=== PATIENT | female | born 2000 | race Caucasian/White ===

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

== ENCOUNTER 2021-08-13 15:30 | Outpatient (CLI) | payer OTHER, SELFPAY | END 2021-08-13 23:59 | disposition home or self-care (01) | LOC: WPOUT 15:33 → LABSPEC 15:34 | PROVIDERS: Visit Provider Otolaryngology | DX: J02.9 Acute pharyngitis, unspecified (principal) | CPT/HCPCS: 87070; 87077 ==

== ENCOUNTER 2023-02-03 17:37 | Emergency (ER) | payer OTHER, MEDICAID, SELFPAY ==
[2023-02-03 17:38] VITALS: BP 127/74; PULSE 78; RESP 14; TEMP 35.7; O2SAT 97; BMI 30.2
--- NOTE | 2023-02-03 18:36 | ED.RN ---
Patient states she fell Friday night and hit her head, denies LOC. States headache got worse over the last day. Took one 200mg ibuprofen only, states her parents are strict on what she can take.
[2023-02-03 20:00] VITALS: RESP 18
--- NOTE | 2023-02-03 20:22 | CT_ITS ---
STUDY: CT BRAIN WITHOUT CONTRAST REASON FOR EXAM: Female, 23 years old. trauma RADIATION DOSAGE (If Supplied By Facility): CTDIvol = ( 44.99 ) mGy, DLP = ( 779.24 ) mGycm TECHNIQUE: Transaxial CT imaging of the brain was performed without administration of intravenous contrast material. Individualized dose optimization techniques were used for this CT. COMPARISON: 06/18/2013 FINDINGS: Normal soft tissue structures. Normal calvarium. Normal size ventricles and extra-axial spaces for the patient''s age. Normal white matter tracts of the cerebral hemispheres. Normal basal ganglia and thalami. Normal brainstem. Normal cerebellum. There is no intracranial hemorrhage. There are no findings of an acute ischemic infarction. Normal visualized paranasal sinuses. CT/Brain/Head without Contrast IMPRESSION: Normal unenhanced CT scan of the brain. Electronically Signed: Ronal Mg MD at 21:09 EDT ,
--- NOTE | 2023-02-03 20:23 | EDS_ITS ---
HPI History of Present Illness Chief Complaint: Headache Informant: patient Narrative Narrative: Patient had an injury to the back of her head, and has been having a headache ever since. This occurred somewhere in the 30-40-hour ago range. She states she and some friends were drinking, she was coming down some steps and lost her balance, falling, and as she was going back up the steps she fell again. One of them, she hit the back of her head on the baseboard/railing next to the steps. She is been having pain and photophobia with some occasional diplopia ever since, and feeling a little disoriented. No vomiting. No neck pain. No other injuries or pain. [facility] Medical History Anemia affecting History of depression PTSD (post-traumatic stress disorder) Home Medications vits no.130-ferrous fum 27 mg iron-folic acid 800 mcg tablet ( Vitamin) 1 ea PO DAILY 11/19/18 [History Last Taken 11/18/18] ferrous sulfate 325 mg (65 mg iron) tablet 325 mg PO 1200,1700 ##30 11/21/18 [Rx Last Taken Unknown] Allergy/AdvReac Type Severity Reaction Status Date / Time amoxicillin [Amoxicillin] AdvReac Diarrhea Verified 02/03/23 17:38 Social History Smoking Status: Never smoker ROS ROS ED Constitutional Constitutional ED: Denies chills or fever(s) Eyes Eyes: Reports change in vision and diplopia; Denies blurry vision ENT ENT ED: Denies ear pain or sore throat Cardiovascular Cardiovascular: Denies chest pain or palpitations Respiratory/Chest Respiratory/Chest: Denies cough or dyspnea Gastrointestinal Gastrointestinal: Denies abdominal pain, diarrhea, nausea or vomiting Genitourinary Genitourinary ED: Denies dysuria or urinary frequency Musculoskeletal Musculoskeletal: Denies back pain or myalgias Integumentary Denies abscess or rash Neurologic Neurologic: Reports headache(s); Denies paresthesias or weakness EXAM Physical Exam Const Vital Signs: 02/03/23 17:38 02/03/23 20:00 Temperature 96.3 F L Temperature Source Temporal Pulse Rate 78 Respiratory Rate 14 18 Blood Pressure 127/74 H Blood Pressure Mean 91 Pulse Ox 97 Oxygen Delivery Method Room Air Room Air HEENT Reports normocephalic and moist mucous membranes HEENT Narrative: Mild tenderness at the occiput, a little to the right. No obvious signs of trauma. No crepitance or depression or boggy hematoma. Eyes PERRL, EOMs intact bilaterally and conjunctivae normal Eyes Narrative: photophobia Neck no lymphadenopathy, supple and no meningeal signs Resp normal respiratory effort and clear to auscultation bilaterally GI non-tender and non-distended Palpation: soft Extremity normal to inspection and full ROM Neuro oriented x3 and CN's II-XII intact bilaterally Sensorium / Orientation: awake and alert Speech: speech normal Gait (Neuro): normal gait Motor Exam: strength 5/5 throughout Psych mental status grossly normal Skin Lesions: no lesions Rashes: no rashes MDM MDM MDM Narrative Medical decision making narrative: CT obtained, I reviewed the images and the report which I agree with, negative for than acute. Patient was okay getting a dose of naproxen she declined antinausea medications, given appropriate discharge instructions and follow-up. Radiography Diagnostic Testing: Clinical Impression(s) from Imaging Studies Brain CT 02/03/23 20:22 IMPRESSION: Normal unenhanced CT scan of the brain. Electronically Signed: Ronal Mg MD at 21:09 EDT , Discharge Plan Triage Chief Complaint: Headache ED Provider: Evin Patel Dx/Rx/DC Orders Clinical Impression: Closed head injury without loss of consciousness Instructions: Concussion Dc Prescriptions: No Action vit no.[id number] [ Vitamin] 1 EACH tablet 1 ea PO DAILY ferrous sulfate 325 MG tablet 325 mg PO 1200,1700 Qty: 30 0RF Primary Care Provider: Aliza Gregory NP Referrals: Aliza Gregory NP, [employer] M[employer]INE OPERATOR-[employer] [Primary Care Provider] - (1 week if persistent symptoms) Disposition Disposition: Home, Self Care Discharge Date/Time: 02/03/23 20:41
[2023-02-03] MEDS: Naproxen 250 MG Tablet 500 MG PO (20:26)
== END 2023-02-03 20:41 | disposition home or self-care (01) ==
PROVIDERS: Emergency Provider Emergency Medicine; PCP Nurse Practitioner Primary Care; Visit Provider Emergency Medicine
DX: S09.90XA Unspecified injury of head, initial encounter (principal); W10.9XXA Fall (on) (from) unspecified stairs and steps, initial encounter; H53.2 Diplopia
CPT/HCPCS: 70450; 99282

== ENCOUNTER 2023-07-09 12:45 | Outpatient (CLI) | payer MEDICAID, OTHER, SELFPAY ==
[2023-07-09 12:54] VITALS: BMI 30.9
[2023-07-09 13:06] VITALS: TEMP 36.7
[2023-07-09 13:07] VITALS: BP 119/60; PULSE 90
[2023-07-09 13:12] LABS: Color, Urine Yellow (Yellow); Glucose, Dipstick Normal (Normal); Ketone-Dipstick Negative (Negative); Leukocyte Esterase-Dipstick 500 /ul (Negative); Nitrite-Dipstick Negative (Negative); Occult Blood-Urine 10 /ul (Negative); Protein-Dipstick 15 mg/dl (Negative); Specific Gravity, Urine 1.015 (1.002-1.030); Urine Bilirubin Dipstick Negative (Negative); Urine Clarity Sl. Cloudy (Clear); Urine Urobilinogen Normal (Normal); Urine pH 6.5 (5.0 - 8.0)
[2023-07-09] MEDS: Acetaminophen 500 MG Tablet 1000 MG PO (14:15)
[2023-07-09] MEDS: Lactated Ringers 1,000 ML 999 ML IV (14:16)
--- NOTE | 2023-07-09 20:47 | OB.TRI.NOTE ---
HPI - General HPI Narrative CATE STONE, is a 23 F at 23 weeks gestation who presents to triage with low back and hip pain, nausea and malaise. Maternal Data Information GRICEL Calculator Estimated Delivery Date Method Current WG Current Estimate 11/03/23 Manual 23w 2d PFSH PFSH Medical History Anemia affecting History of depression PTSD (post-traumatic stress disorder) Home Medications famotidine 20 mg tablet (Pepcid) 20 mg PO BID 07/09/23 [History Last Taken 07/09/23 07:30 20 mg] promethazine 25 mg tablet 25 mg PO Q6H PRN nausea 07/09/23 [History Last Taken 07/09/23 07:30 25 mg] Allergy/AdvReac Type Severity Reaction Status Date / Time nickel Allergy Rash Verified 07/09/23 13:15 amoxicillin [Amoxicillin] AdvReac Diarrhea Verified 07/09/23 13:15 clavulanic acid AdvReac Diarrhea Verified 07/09/23 13:15 [From Augmentin] Social History Smoking Status: Never smoker History Elective abortions Hx Para 0 Spontaneous abortions Hx # Term Pregnancies Ectopic pregnancies Hx # Pregnancies Multiple births # of living children ROS Eyes Eyes: Denies blurry vision Cardiovascular Cardiovascular: Reports none; Denies chest pain at rest, chest pain with activity or dizziness Respiratory/Chest Respiratory/Chest: Denies cough or dyspnea Gastrointestinal Gastrointestinal: Reports none and other; Denies diarrhea or vomiting Genitourinary Genitourinary: Denies dysuria Musculoskeletal Musculoskeletal: Reports none Integumentary Integumentary: Reports none; Denies rash Neurologic Neurologic: Denies dizziness, headache(s) or other visual disturbances Psychiatric Psychiatric: Reports none Physical Exam Const alert and no apparent distress General Appearance: cooperative Orientation / Consciousness: awake Exam Limitations: no limitations HEENT normocephalic Eyes General Eye: normal appearance of both eyes Neck full ROM Chest inspection of chest normal Resp normal respiratory effort and normal air movement Effort and Inspection: symmetric chest movement Auscultation: clear to auscultation bilaterally Cardio regular rate GI soft to palpation, non-tender and non-distended Inspection: and other Back/Spine normal ROM Extremity full ROM, normal capillary refill and no calf tenderness Skin no rashes or lesions noted Neuro oriented x3 and CN's II-XII intact bilaterally Psych mental status grossly normal Assessment & Plan (1) 23 weeks gestation of : (2) Low back pain: (3) Nausea/vomiting in : (4) Supervision of normal : (5) History of herpes genitalis: PLAN: Plan FHT 140-150 bpm via Doppler Start IV and give 1000 cc bolus Zofran 4 mg PO/IV x1 now for nausea Tylenol 1000 mg PO x 1 now for back pain Patient reports no pain and feeling 100 x better after IV fluids Requesting d/c home
== END 2023-07-09 15:19 | disposition home or self-care (01) ==
LOC: WPOUT 12:52 → WP 12:53
PROVIDERS: PCP Nurse Practitioner Primary Care; Referring Provider Advanced Practice Midwife; Visit Provider Advanced Practice Midwife
DX: O99.891 Other specified diseases and conditions complicating pregnancy (principal); M54.50 Low back pain, unspecified; M25.559 Pain in unspecified hip; O98.312 Other infections with a predominantly sexual mode of transmission complicating pregnancy, second trimester; A60.00 Herpesviral infection of urogenital system, unspecified; O21.9 Vomiting of pregnancy, unspecified; Z3A.23 23 weeks gestation of pregnancy
CPT/HCPCS: 96360; 59050; 81002; 99221; J7120; G0378

== ENCOUNTER 2023-10-29 07:19 | Inpatient (IN) | payer OTHER, MEDICAID, SELFPAY ==
[2023-07-09 13:06] VITALS: RESP 16
[2023-10-29] VITALS (46 sets, daily range): BP systolic 87–119; BP diastolic 46–67; PULSE 74–116; RESP 16–18; TEMP 36.3–37.3; O2SAT 90–100; BMI 31.1
[2023-10-29] MEDS: Lactated Ringers 1,000 ML 50 ML IV (07:52)
[2023-10-29] MEDS: Oxytocin 15 Units/NS 250ml 15 UNITS/250 ML IV.SOLN 2 UNITS IV (08:03)
[2023-10-29 08:04] LABS: Absolute Lymphocyte Count 1.86 X10^3/uL (0.83-4.51); Absolute Neutrophil Count 5.6 X10^3/uL (2.0-7.7); Basophil# 0.07 X10^3/uL; Basophil% 0.8 % (0-1); Eosinophils% 1.2 % (0-5); Hematocrit 29.5 % (37-47); Hemoglobin 9.1 g/dL (12.0-15.0); Lymphocyte # 1.86 X10^3/ul (0.83-4.51); Lymphocyte % 22.5 % (19-41); Mean Corp Hgb Conc 30.8 g/dL (32-36); Mean Corpuscular Hgb 22.9 pg (27.0-32.0); Mean Corpuscular Volume 74.1 fL (81-99); Mean Platelet Vol. 9.6 fl (6.2-12.0); Monocyte# 0.57 X10^3/uL; Monocyte% 6.9 % (0-10); NRBC Flagged by Analyzer 0 % (0-5); Neutrophil # 5.59 X10^3/uL (2.7-7.7); Neutrophil % 67.6 % (47-70); Platelet Count 347 K/mm3 (150-450); RBC Distribution Width CV 15.6 % (11.6-14.6); RBC Distribution Width SD 41.4 fl (35.1-43.9); Red Blood Count 3.98 M/mm3 (4.2-5.4); White Blood Count 8.3 K/mm3 (4.4-11.0)
[2023-10-29 09:20] LABS: Syphilis Antibodies Non-reactive
[2023-10-29] MEDS: LACTATED RINGERS 500 ML 999 ML IV ×5 (10:39→23:27)
[2023-10-29] MEDS: fentaNYL-bupivacaine (epidural) 100 ML BAG EPIDURAL ×3 (11:23→21:00)
[2023-10-29] MEDS: Ondansetron 4 MG/2 ML Vial IV ×2 (12:14→21:48)
[2023-10-29] MEDS: 0.9% Saline Lock 10 ML Syringe IV (12:14)
[2023-10-29] MEDS: Mag Hydrox/Al Hydrox/Simeth 30 ML UDC PO ×2 (12:26→18:32)
[2023-10-29] MEDS: Lactated Ringers 1,000 ML 200 ML IV (18:35)
--- NOTE | 2023-10-29 19:33 | PCM.HP.OB ---
HPI - General General Date of Admission: 10/29/23 Date of Service: 10/29/23 Chief Complaint: Elective IOL HPI Narrative CATE STONE, is a 23 F who presents elective IOL with Pitocin. Previous vaginal delivery at term. Uncomplicated . Maternal Data Information GRICEL Calculator Estimated Delivery Date Method Current WG Current Estimate 11/03/23 Manual 39w 2d Final GRICEL: 11/03/23 Gestational age: 39+2 PFSH PFSH Medical History Anemia affecting History of depression PTSD (post-traumatic stress disorder) Home Medications ?Medication ?Instructions ?Recorded ?Last Taken ?Type famotidine 20 mg tablet (Pepcid) 20 mg PO BID heartburn 07/09/23 07/09/23 07:30 History 20 mg promethazine 25 mg tablet 25 mg PO Q6H PRN nausea 07/09/23 07/09/23 07:30 History 25 mg metoclopramide HCl 5 mg tablet 5 mg PO Q6H PRN nausea and vomiting 10/29/23 Unknown History (Reglan) pantoprazole 40 mg tablet,delayed 40 mg PO DAILY heartburn 10/29/23 10/28/23 10:00 History release (Protonix) Allergy/AdvReac Type Severity Reaction Status Date / Time nickel Allergy Rash Verified 10/29/23 07:27 amoxicillin (Amoxicillin) AdvReac Diarrhea Verified 10/29/23 07:27 clavulanic acid (From AdvReac Diarrhea Verified 10/29/23 07:27 Augmentin) Social History Smoking Status: Never smoker History 2 Elective abortions Hx Para 1 Spontaneous abortions Hx # Term Pregnancies Ectopic pregnancies Hx # Pregnancies Multiple births # of living children NST FHR Rate Baby A Baseline: 125 Variability:: Moderate Accelerations:: 15 x 15 Decelerations:: None NST Reactive:: Yes FHR Category:: Category I Uterine Activity:: occasional ROS Constitutional Constitutional: Denies fatigue, fever(s) or malaise Eyes Eyes: Denies change in vision ENT HEENT: Denies dizziness or headache(s) Cardiovascular Cardiovascular: Denies chest pain, dyspnea or lightheadedness Respiratory/Chest Respiratory/Chest: Denies cough or dyspnea Gastrointestinal Gastrointestinal: Denies change in bowel habits Genitourinary Genitourinary: Denies burning urination or genital lesions Integumentary Integumentary: Denies rash Neurologic Neurologic: Denies confusion, dizziness, headache(s), numbness or weakness Vital Signs Vital Signs Vital Signs: 10/29/23 07:31 10/29/23 07:31 10/29/23 07:31 Temperature Temperature Source Temporal Pulse Rate 108 H Respiratory Rate Blood Pressure 115/67 BP Systolic 115 BP Diastolic 67 Pulse Ox 10/29/23 07:31 10/29/23 07:31 10/29/23 08:45 Temperature 98.2 F Temperature Source Pulse Rate Respiratory Rate 16 16 Blood Pressure BP Systolic BP Diastolic Pulse Ox 10/29/23 08:47 10/29/23 08:47 10/29/23 09:48 Temperature Temperature Source Pulse Rate 98 Respiratory Rate Blood Pressure 107/54 L 100/51 L BP Systolic 107 100 BP Diastolic 54 51 Pulse Ox 10/29/23 09:48 10/29/23 09:48 10/29/23 10:43 Temperature Temperature Source Pulse Rate 89 Respiratory Rate 16 Blood Pressure 98/54 L BP Systolic 98 BP Diastolic 54 Pulse Ox 10/29/23 10:43 10/29/23 10:43 10/29/23 10:43 Temperature Temperature Source Temporal Pulse Rate 96 Respiratory Rate 16 Blood Pressure BP Systolic BP Diastolic Pulse Ox 10/29/23 10:43 10/29/23 11:16 10/29/23 11:16 Temperature 97.6 F L Temperature Source Pulse Rate 106 H Respiratory Rate Blood Pressure BP Systolic BP Diastolic Pulse Ox 99 10/29/23 11:16 10/29/23 11:21 10/29/23 11:21 Temperature Temperature Source Pulse Rate 96 Respiratory Rate 18 Blood Pressure 118/67 BP Systolic 118 BP Diastolic 67 Pulse Ox 10/29/23 11:21 10/29/23 11:21 10/29/23 11:21 Temperature Temperature Source Pulse Rate 97 Respiratory Rate 16 Blood Pressure BP Systolic BP Diastolic Pulse Ox 100 10/29/23 11:25 10/29/23 11:25 10/29/23 11:25 Temperature Temperature Source Temporal Pulse Rate 100 Respiratory Rate Blood Pressure 114/63 BP Systolic 114 BP Diastolic 63 Pulse Ox 10/29/23 11:25 10/29/23 11:25 10/29/23 11:26 Temperature 98.0 F Temperature Source Pulse Rate 101 H Respiratory Rate 16 Blood Pressure BP Systolic BP Diastolic Pulse Ox 10/29/23 11:26 10/29/23 11:30 10/29/23 11:30 Temperature Temperature Source Pulse Rate 96 Respiratory Rate Blood Pressure 110/61 BP Systolic 110 BP Diastolic 61 Pulse Ox 99 10/29/23 11:30 10/29/23 11:31 10/29/23 11:31 Temperature Temperature Source Pulse Rate 98 Respiratory Rate 16 Blood Pressure BP Systolic BP Diastolic Pulse Ox 100 10/29/23 11:36 10/29/23 11:36 10/29/23 11:36 Temperature Temperature Source Pulse Rate 90 91 Respiratory Rate Blood Pressure 104/56 L BP Systolic 104 BP Diastolic 56 Pulse Ox 10/29/23 11:36 10/29/23 11:36 10/29/23 11:37 Temperature Temperature Source Pulse Rate Respiratory Rate 16 Blood Pressure 100/52 L BP Systolic 100 BP Diastolic 52 Pulse Ox 97 10/29/23 11:37 10/29/23 11:40 10/29/23 11:40 Temperature Temperature Source Pulse Rate 93 90 Respiratory Rate Blood Pressure 104/55 L BP Systolic 104 BP Diastolic 55 Pulse Ox 10/29/23 11:40 10/29/23 11:41 10/29/23 11:41 Temperature Temperature Source Pulse Rate 90 Respiratory Rate 16 Blood Pressure BP Systolic BP Diastolic Pulse Ox 97 10/29/23 11:45 10/29/23 11:46 10/29/23 11:46 Temperature Temperature Source Pulse Rate 90 Respiratory Rate 16 Blood Pressure 113/62 BP Systolic 113 BP Diastolic 62 Pulse Ox 10/29/23 11:46 10/29/23 11:46 10/29/23 11:50 Temperature Temperature Source Temporal Pulse Rate 97 Respiratory Rate Blood Pressure BP Systolic BP Diastolic Pulse Ox 97 10/29/23 11:50 10/29/23 11:51 10/29/23 11:51 Temperature 97.3 F L Temperature Source Pulse Rate 116 H Respiratory Rate Blood Pressure BP Systolic 109 BP Diastolic Pulse Ox 10/29/23 11:51 10/29/23 11:51 10/29/23 11:51 Temperature Temperature Source Pulse Rate 99 Respiratory Rate Blood Pressure 108/57 L BP Systolic 108 BP Diastolic 57 Pulse Ox 97 10/29/23 12:14 10/29/23 12:14 10/29/23 12:14 Temperature Temperature Source Pulse Rate 98 Respiratory Rate 16 Blood Pressure 119/60 BP Systolic 119 BP Diastolic 60 Pulse Ox 10/29/23 12:21 10/29/23 12:21 10/29/23 12:21 Temperature Temperature Source Pulse Rate 77 80 Respiratory Rate Blood Pressure 96/51 L BP Systolic 96 BP Diastolic 51 Pulse Ox 10/29/23 12:21 10/29/23 12:22 10/29/23 12:22 Temperature Temperature Source Pulse Rate 80 Respiratory Rate Blood Pressure BP Systolic BP Diastolic Pulse Ox 95 94 10/29/23 12:26 10/29/23 12:26 10/29/23 12:28 Temperature Temperature Source Pulse Rate 84 Respiratory Rate Blood Pressure 95/51 L BP Systolic 95 BP Diastolic 51 Pulse Ox 98 10/29/23 12:28 10/29/23 12:31 10/29/23 12:31 Temperature Temperature Source Pulse Rate 78 88 Respiratory Rate Blood Pressure 87/46 L BP Systolic 87 BP Diastolic 46 Pulse Ox 10/29/23 12:31 10/29/23 12:31 10/29/23 12:36 Temperature Temperature Source Pulse Rate 92 Respiratory Rate Blood Pressure 90/53 L BP Systolic 90 BP Diastolic 53 Pulse Ox 97 10/29/23 12:36 10/29/23 12:36 10/29/23 12:36 Temperature Temperature Source Pulse Rate 82 79 Respiratory Rate Blood Pressure BP Systolic BP Diastolic Pulse Ox 98 10/29/23 12:41 10/29/23 12:41 10/29/23 12:43 Temperature Temperature Source Pulse Rate 74 Respiratory Rate Blood Pressure 90/54 L BP Systolic 90 BP Diastolic 54 Pulse Ox 97 10/29/23 12:43 10/29/23 12:46 10/29/23 12:46 Temperature Temperature Source Pulse Rate 75 81 Respiratory Rate Blood Pressure 90/54 L BP Systolic 90 BP Diastolic 54 Pulse Ox 10/29/23 12:46 10/29/23 12:49 10/29/23 12:49 Temperature Temperature Source Pulse Rate 91 Respiratory Rate Blood Pressure BP Systolic BP Diastolic Pulse Ox 96 90 10/29/23 12:51 10/29/23 12:51 10/29/23 12:51 Temperature Temperature Source Pulse Rate 86 Respiratory Rate Blood Pressure 106/63 BP Systolic 106 BP Diastolic 63 Pulse Ox 96 10/29/23 12:56 10/29/23 12:56 10/29/23 12:57 Temperature Temperature Source Pulse Rate 108 H Respiratory Rate Blood Pressure 88/49 L BP Systolic 88 BP Diastolic 49 Pulse Ox 97 10/29/23 12:57 10/29/23 13:01 10/29/23 13:01 Temperature Temperature Source Pulse Rate 100 80 Respiratory Rate Blood Pressure BP Systolic BP Diastolic Pulse Ox 96 10/29/23 13:02 10/29/23 13:02 10/29/23 13:06 Temperature Temperature Source Pulse Rate 82 87 Respiratory Rate Blood Pressure 108/61 BP Systolic 108 BP Diastolic 61 Pulse Ox 10/29/23 13:06 10/29/23 13:07 10/29/23 13:07 Temperature Temperature Source Pulse Rate 87 Respiratory Rate Blood Pressure 102/58 L BP Systolic 102 BP Diastolic 58 Pulse Ox 96 10/29/23 14:17 10/29/23 14:17 10/29/23 14:17 Temperature Temperature Source Pulse Rate 83 Respiratory Rate Blood Pressure 90/54 L BP Systolic 90 BP Diastolic 54 Pulse Ox 96 10/29/23 14:17 10/29/23 14:17 10/29/23 14:17 Temperature 97.4 F L Temperature Source Temporal Pulse Rate Respiratory Rate 16 Blood Pressure BP Systolic BP Diastolic Pulse Ox 10/29/23 15:11 10/29/23 15:11 10/29/23 15:11 Temperature Temperature Source Temporal Pulse Rate 76 Respiratory Rate Blood Pressure 98/50 L BP Systolic 98 BP Diastolic 50 Pulse Ox 10/29/23 15:11 10/29/23 15:11 10/29/23 16:04 Temperature 98.2 F Temperature Source Temporal Pulse Rate Respiratory Rate 16 Blood Pressure BP Systolic BP Diastolic Pulse Ox 10/29/23 16:04 10/29/23 16:04 10/29/23 16:04 Temperature Temperature Source Pulse Rate 81 Respiratory Rate 16 Blood Pressure 105/56 L BP Systolic 105 BP Diastolic 56 Pulse Ox 10/29/23 16:04 10/29/23 16:04 10/29/23 17:14 Temperature 98.2 F Temperature Source Pulse Rate Respiratory Rate Blood Pressure 102/52 L BP Systolic 102 BP Diastolic 52 Pulse Ox 97 10/29/23 17:14 10/29/23 17:14 10/29/23 17:14 Temperature Temperature Source Temporal Pulse Rate 83 Respiratory Rate Blood Pressure BP Systolic BP Diastolic Pulse Ox 97 10/29/23 17:14 10/29/23 17:14 10/29/23 19:18 Temperature 99.1 F Temperature Source Pulse Rate 82 Respiratory Rate 16 Blood Pressure BP Systolic BP Diastolic Pulse Ox 10/29/23 19:18 10/29/23 19:18 10/29/23 19:18 Temperature Temperature Source Temporal Pulse Rate Respiratory Rate 16 Blood Pressure BP Systolic BP Diastolic Pulse Ox 97 10/29/23 19:18 10/29/23 19:19 10/29/23 19:19 Temperature 98.6 F Temperature Source Pulse Rate 88 Respiratory Rate Blood Pressure 106/52 L BP Systolic 106 BP Diastolic 52 Pulse Ox Weight Weight: 79.832 kg Body Mass Index (BMI) 31.1 Physical Exam Const alert and no apparent distress General Appearance: cooperative HEENT normocephalic Resp normal respiratory effort GI soft to palpation GI Narrative: gravid, nontender, appropriate for gestational age Narrative: no lesions Manual OB Exam: dilated 2, effaced 50 and station -2 Extremity no calf tenderness General Extremity: edema Skin no wounds Rashes: No rashes noted Psych activity/motor behavior normal Labs Labs Labs: Blood Type A POSITIVE Antibody Screen NEGATIVE Hct 29.5 % (37-47) L Hgb 9.1 g/dL (12.0-15.0) L Syphilis Total Ab Non-reactive Rhogam given: No Assessment & Plan (1) 39 weeks gestation of : (2) Encounter for elective induction of labor: PLAN: Plan Pitocin induction of labor
--- NOTE | 2023-10-29 19:42 | PN.OBGYN_ITS ---
Subjective Subjective AROM for clear fluid. IUPC placed without difficulty. 4 70/-2 Objective Data Objective Data Vital Signs: Vital Signs Temp Pulse Resp BP Pulse Ox 98.6 F 88 16 106/52 L 97 10/29/23 19:18 10/29/23 19:19 10/29/23 19:18 10/29/23 19:19 10/29/23 19:18 Weight: 79.832 kg Body Mass Index (BMI) 31.1 Intake & Output: Intake and Output for Last 24 Hours 10/27/23 10/28/23 10/29/23 23:59 23:59 23:59 Intake Total 3105.03 / 3105.03 Balance 3105.03 / 3105.03 Lab / Micro Data 10/29/23 07:50 Labs: Laboratory Results - last 24 hr 10/29/23 07:50: WBC 8.3, RBC 3.98 L, Hgb 9.1 L, Hct 29.5 L, MCV 74.1 L, MCH 22.9 L, MCHC 30.8 L, RDW Std Deviation 41.4, RDW Coeff of Laura 15.6 H, Plt Count 347, MPV 9.6, Immature Gran % (Auto) 1.000 H, Neut % (Auto) 67.6, Lymph % (Auto) 22.5, Garfield % (Auto) 6.9, Eos % (Auto) 1.2, Baso % (Auto) 0.8, Absolute Neuts (auto) 5.6, Absolute Lymphs (auto) 1.86, Nucleated RBC % 0, Syphilis Total Ab Non-reactive, Blood Type A POSITIVE, Antibody Screen NEGATIVE NST FHR Rate Baby A Baseline: 125 Variability:: Moderate Accelerations:: 15 x 15 Decelerations:: None NST Reactive:: Yes FHR Category:: Category I Uterine Activity:: q 2-5, not adequate Assessment & Plan (1) 39 weeks gestation of : (2) Encounter for elective induction of labor:
[2023-10-30] VITALS (24 sets, daily range): BP systolic 98–128; BP diastolic 48–71; PULSE 78–110; RESP 14–16; TEMP 36.4–37.2; O2SAT 96–99
--- NOTE | 2023-10-30 00:33 | EX.PCM.OBRPT ---
Assessment & Plan (1) (spontaneous vaginal delivery): (2) Encounter for elective induction of labor: Maternal Data Information GRICEL Calculator Estimated Delivery Date Method Current WG Current Estimate 11/03/23 Manual 39w 3d Final GRICEL: 11/03/23 Gestational age: 39+2 Vaginal Delivery Maternal Presentation Maternal Presentation: Elective Induction Type of Induction: Pitocin Operative Information Date of Procedure: 10/30/23 Pre-Operative Diagnosis: term Post-Operative Diagnosis: same Surgery / Procedure Performed: Spontaneous Vaginal Delivery Type of Anesthesia: Epidural Drain: Adames to straight drain Estimated Blood Loss: 100 cc Time of Delivery: 00:10 Findings Description of Procedure: Pitocin IOL. AROM at 4 cm. Clear fluid. Progressed to complete with IV Pitocin. She pushed for approximately 45 minutes over an intact perineum. Delivered straight OP with a loose nuchal cord. Anterior and posterior should delivered without difficulty. cried upon delivery. The was placed on the maternal abdomen. Cord was clamped and cut. The placenta was delivered with gentle traction. No laceration were found. Presentation: Vertex (OP) Amniotic Membrane Rupture Type: Artificial Time of Membrane Rupture: 1824 Amniotic Fluid Description: Clear Placental Delivery Description: Spontaneous Placenta Disposition: [facility] Cord Vessel Description: 3 Vessels Cord Entanglement: Around neck x 1, loose Nuchal Cord Compression: Without compression Infant A Gender: Female (1 minute): 9 (5 minute): 9 Delayed Cord Clamping: Yes Post Vaginal Delivery Medications Given After Delivery: IV Pitocin and IM Pitocin Episiotomy Description: None Laceration: None Complication Complications: None
[2023-10-30] MEDS: Oxytocin 15 Units/NS 250ml 15 UNITS/250 ML IV.SOLN 83 UNITS IV (00:45)
[2023-10-30] MEDS: Acetaminophen 500 MG Tablet 1000 MG PO ×2 (03:12→16:18)
[2023-10-31 02:50] VITALS: BP 97/59; PULSE 67; RESP 16; TEMP 36.6; O2SAT 97
--- NOTE | 2023-10-31 07:19 | DS.PCM_ITS ---
Providers Date of Admission: 10/29/23 Primary Care Physician: MONIKA AyalaC Reason For Visit: VAGINAL DELIVERY Diagnosis Discharge Diagnosis (1) (spontaneous vaginal delivery): Status: Acute Code(s): O80 - Encounter for full-term uncomplicated delivery (2) Encounter for elective induction of labor: Status: Acute Code(s): Z34.90 - Encounter for supervision of normal , unspecified, unspecified trimester Medications at Discharge Home Medications famotidine 20 mg tablet (Pepcid) 20 mg PO BID heartburn 07/09/23 promethazine 25 mg tablet 25 mg PO Q6H PRN nausea 07/09/23 metoclopramide HCl 5 mg tablet (Reglan) 5 mg PO Q6H PRN nausea and vomiting 10/29/23 pantoprazole 40 mg tablet,delayed release (Protonix) 40 mg PO DAILY heartburn 10/29/23 Hospital Course Operations None Procedures None Summary of Care Provided Minutes Spent on Discharge: 10 Hospital Course: Patient had . Hospital course was uneventful Physical Exam Const alert and no apparent distress General Appearance: cooperative and comfortable Exam Limitations: no limitations HEENT normocephalic Eyes General Eye: normal appearance of both eyes Neck full ROM General: normal visual inspection Chest Chest: symmetrical chest wall rise Resp normal respiratory effort and normal air movement Effort and Inspection: symmetric chest movement Auscultation: clear to auscultation bilaterally Cardio regular rate and regular rhythm GI normal to inspection, nondistended, normoactive bowel sounds Back/Spine normal ROM Extremity full ROM and no calf tenderness General Extremity: normal exam except as noted Skin no rashes or lesions noted Neuro CN's II-XII intact bilaterally Psych mental status grossly normal Weight / BMI Weight Weight: 176 lb Body Mass Index (BMI) 31.1 ABG / Lab / Microbiology Data 10/29/23 07:50 D/C Instructions Discharge Diet: No restrictions May resume sexual activity in: 6-8 weeks Weight Bearing Status: Weight bearing as tolerated Call your doctor if you observe: Fever of 101 or Higher, Inability to urinate, Using more than 1 pad per hour, Shortness of breath, Chest pain, Calf discomfort and Uncontrolled pain When: 2 weeks virtual visit/ 6 weeks in office Meaningful Use Info Meaningful Use Meaningful Use Diagnoses (Choose all that apply): None applicable Ischemic Stroke Statin Dosing Therapy Reference: STATIN DOSE THERAPY REFERENCE: * Patients > 75 years receive moderate or high dose statin therapy. * Patients 75 years or YOUNGER should receive HIGH intensity statin dose unless contraindicated. You will be required to document reason for non-treatment if statin daily dose does not meet guidelines. HIGH DOSE STATIN THERAPY DAILY Atorvastatin > than or = to 40 mg Rosuvastatin > than or = to 20 mg Amlodipine + Atorvastatin > than or = to 2.5/40 mg Ezetimibe + Simvastatin 10/80 mg Simvastatin 80mg Discharge Plan Admission Admit Date/Time: 10/29/23 07:19 Attending Provider: Katarina Shukla Primary Care Provider: Aliza Gregory NP Discharge Orders/Prescriptions Prescriptions: No Action famotidine [Pepcid] 20 mg tablet 20 mg PO BID promethazine 25 mg tablet 25 mg PO Q6H PRN (Reason: nausea) pantoprazole [Protonix] 40 mg tablet,delayed release (DR/EC) 40 mg PO DAILY metoclopramide HCl [Reglan] 5 mg tablet 5 mg PO Q6H PRN (Reason: nausea and vomiting) Referrals / Follow Up: Nadira Black CNM [Med Staff - [facility]] - Aliza Gregory NP, [employer]ING [employer] TENDER-C [Primary Care Provider] - Disposition Disposition (needs filled in before D/C Order can be placed): Home, Self Care
[2023-10-31 09:30] VITALS: BP 102/66; PULSE 70; RESP 16; TEMP 36.2; O2SAT 98
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
--- NOTE | 2023-11-04 14:24 | NURSING ---
Follow up phone call made, no answer, left voicemail
== END 2023-10-31 11:00 | disposition home or self-care (01) | DRG 807 ==
PROVIDERS: Admitting Provider Obstetrics & Gynecology; PCP Nurse Practitioner Primary Care; Referring Provider Obstetrics & Gynecology; Visit Provider Obstetrics & Gynecology
DX: O69.81X0 Labor and delivery complicated by cord around neck, without compression, not applicable or unspecified (principal); Z37.0 Single live birth; Z3A.39 39 weeks gestation of pregnancy
CPT/HCPCS: 59025; 59050; 85025; 86780; 86850; 86900; 86901; 99221; J7120; A4216; G0378; J2405

== ENCOUNTER 2024-08-07 14:13 | Emergency (ER) | payer OTHER, SELFPAY ==
[2024-08-07 14:14] VITALS: BP 122/85; PULSE 73; RESP 16; TEMP 35.8; O2SAT 100; BMI 26.5
--- NOTE | 2024-08-07 14:20 | RAD_ITS ---
PROCEDURE: WRIST MIN 3 VIEWS REASON FOR EXAM: Fall TECHNIQUE: 2 view(s) of each wrist COMPARISON: None. FINDINGS: RIGHT WRIST: Cortical irregularity and lucency in the distal right radius. Normal alignment. Soft tissues are unremarkable. RAD/Wrist min 3 Views IMPRESSION: Nondisplaced right radial fracture. Reading Location: [facility]
--- NOTE | 2024-08-07 15:55 | EDS_ITS ---
<Statement entered by Lei Bender DO - 08/07/24 16:12> Patient was seen and examined with nurse practitioner Alfred All components of the history and physical confirmed and agreed. History of present illness and physical exam: Patient is a 24-year-old female with no known significant past medical history who presents to the emergency department with a chief complaint of right wrist pain. States that she was snowboarding earlier and this was her first time snowboarding noted as very icy and she fell. She states that she attempted to catch herself and had right wrist pain. States that they placed her in a splint and they drove here from [place] to be evaluated. Review of systems: Constitutional: Denies any headaches, lightness, dizziness, fevers, chills she states that she did not hit her head did not pass out Cardiovascular: No chest pain or palpitations Respiratory: Denies coughing wheezing shortness of breath Musculoskeletal: Complains of right wrist pain as noted above Neurological: Denies any numbness, weakness, tingling Skin: Denies any rashes or lesions Physical exam: Agree with above will add that the patient was able to give me the thumbs up sign okay sign and oppose her thumb to her pinky is bilaterally thigh difficulty which. She was able to abduct abduct her fingers bilaterally without difficulty. Patient has sensation intact in the median ulnar and radial nerve distribution bilaterally. MDM Patient is a 24-year-old female who presented to the emerged part with chief complaint of right wrist pain. On the differential diagnose includes but not limited to distal radius fracture, ulnar fracture, musculoskeletal strain. Once workup is obtained reviewed she will be reevaluated. Patient's x-ray reviewed by myself and by radiology which did reveal a nondisplaced right radial fracture. Did discuss the results with the patient and she will be placed in a sugar-tong splint she was advised to keep this dry and clean. She is to ice through the splint and rotate Tylenol and ibuprofen [id number] as well as was given prescription for [place] and Zofran. She is advised to return with worsening symptoms and concerns. She is agreeable this plan she like to go home at this point time all course concerns answered she is discharged home in stable condition. Patient remained neurovascular intact after splint application. Patient was referred to orthopedics. Final impression: Right distal radius fracture Right wrist pain Snowboarding accident Disposition: Patient will be discharged home in stable condition Supervising attending attestation: Lei VELASCO History of Present Illness Chief Complaint: Upper Extremity Injury Narrative Narrative: Patient is a 24-year-old female with no significant medical history. Presenting to the emergency department after falling backwards while snowboarding injuring her right wrist. Patient did arrive in a splint from the facility. Patient denies any other injury. Patient has worsening pain with movement. [facility] Medical History Anemia affecting History of depression PTSD (post-traumatic stress disorder) Home Medications ?Medication ?Instructions ?Recorded ?Last Taken ?Type famotidine 20 mg tablet (Pepcid) 20 mg PO BID heartbur n 07/09/23 07/09/23 07:30 History 20 mg promethazine 25 mg tablet 25 mg PO Q6H PRN nausea 06/1107/09/23 07:30 History 25 mg metoclopramide HCl 5 mg tablet 5 mg PO Q6H PRN nausea and vomiting 10/29/23 Unknown History (Reglan) pantoprazole 40 mg tablet,delayed 40 mg PO DAILY heart burn 10/29/23 10/28/23 10:00 History release (Protonix) buspirone 15 mg tablet 15 mg PO BID 01/21/24 Unknow n History hydroxyzine HCl 25 mg tablet 25 mg PO TID PRN 01/21/24 Unknown History sertraline 100 mg tablet 100 mg PO DAILY 01/21/24 Unk nown History hydrocodone-acetaminophen 5-325mg 1 tab PO Q6H PRN PRN Pain 3 days 08/07/24 Unknown Rx 5mg-325mg #10 TABLETS ondansetron 4 mg disintegrating 4 mg PO Q6H PRN nausea and 08/07/24 Unknown Rx tablet vomiting #20 tabs Allergy/AdvReac Type Severity Reaction Status Date / Time
--- NOTE | 2024-08-07 15:55 | EX.ED.UPPERE ---
HPI History of Present Illness Chief Complaint: Upper Extremity Injury Narrative Narrative: Patient is a 24-year-old female with no significant medical history. Presenting to the emergency department after falling backwards while snowboarding injuring her right wrist. Patient did arrive in a splint from the facility. Patient denies any other injury. Patient has worsening pain with movement. [facility] Medical History Anemia affecting History of depression PTSD (post-traumatic stress disorder) Home Medications ?Medication ?Instructions ?Recorded ?Last Taken ?Type famotidine 20 mg tablet (Pepcid) 20 mg PO BID heartburn 07/09/23 07/09/23 07:30 History 20 mg promethazine 25 mg tablet 25 mg PO Q6H PRN nausea 07/09/23 07/09/23 07:30 History 25 mg metoclopramide HCl 5 mg tablet 5 mg PO Q6H PRN nausea and vomiting 10/29/23 Unknown History (Reglan) pantoprazole 40 mg tablet,delayed 40 mg PO DAILY heartburn 10/29/23 10/28/23 10:00 History release (Protonix) buspirone 15 mg tablet 15 mg PO BID 01/21/24 Unknown History hydroxyzine HCl 25 mg tablet 25 mg PO TID PRN 01/21/24 Unknown History sertraline 100 mg tablet 100 mg PO DAILY 01/21/24 Unknown History hydrocodone-acetaminophen 5-325mg 1 tab PO Q6H PRN PRN Pain 3 days 08/07/24 Unknown Rx 5mg-325mg #10 TABLETS ondansetron 4 mg disintegrating 4 mg PO Q6H PRN nausea and 08/07/24 Unknown Rx tablet vomiting #20 tabs Allergy/AdvReac Type Severity Reaction Status Date / Time nickel Allergy Rash Verified 10/29/23 07:27 amoxicillin (Amoxicillin) AdvReac Diarrhea Verified 10/29/23 07:27 clavulanic acid (From AdvReac Diarrhea Verified 10/29/23 07:27 Augmentin) Social History Smoking Status: Never smoker ROS ROS ED ROS Narrative Constitutional: Negative for fever, chills, weight loss, weakness Eyes: Negative for vision loss, vision change, double vision ENT: Negative for any sore throat, ear pain, congestion Cardiovascular: Negative for any chest pain, tightness, palpitations Respiratory: Negative for any cough, sputum production, hemoptysis, dyspnea, dyspnea on exertion, orthopnea Gastrointestinal: Negative for any abdominal pain, nausea, vomiting, diarrhea, constipation, blood in stool, blood in vomit : Negative for any urinary frequency, dysuria, retention, blood in urine Muscle skeletal: Negative for any neck pain, back pain. Positive right wrist pain Neurological: Negative for any headache, syncope, dizziness Skin: Negative for any rashes, itching, abrasions, lacerations Psychiatric: Negative for any depression, anxiety, stress, suicidal ideation, homicidal ideation Hematologic: Negative for any excessive bruising, easy bleeding EXAM Physical Exam Narrative Exam Narrative: Vital signs reviewed. Extremities: +2 radial pulse. Patient has significant pain to the radial aspect. Significant pain with any sort of flexion, moving the fingers. No numbness or tingling however there is some pain to the fingers. +2 radial pulse Neuro: Cranial nerves II through XII intact, no focal neurological deficits. Skin: Clean dry and intact with no rash, purpura, petechiae, vesicles or pustules. Backs/flank: No CVA tenderness, no midline spinal tenderness, no deformity. Psych: Normal mood and affect. No SI, HI or acute psychosis. Const Vital Signs: 08/07/24 14:14 Temperature 96.4 F L Temperature Source Temporal Pulse Rate 73 Respiratory Rate 16 Blood Pressure 122/85 H Blood Pressure Mean 97 Pulse Ox 100 Oxygen Delivery Method Room Air MDM MDM Radiography Diagnostic Testing: Clinical Impression(s) from Imaging Studies Wrist X-Ray 08/07/24 14:20 IMPRESSION: Nondisplaced right radial fracture. Reading Location: [facility] Treatment and Re-Evaluation Narrative: Differential diagnosis includes however is not limited to: Wrist sprain, wrist strain, hand fracture, wrist fracture Patient appears generally well, vital signs are stable, patient is nontoxic-appearing. Presenting to the emergency department with complaints of mechanical fall, right wrist pain.Patient received x-rays of the right wrist, this was interpreted by the ER physician. This did show a nondisplaced right radial fracture. Secondary to this finding, patient was placed in a sugar-tong fiberglass splint. Patient be given a sling. [place] will be given for home, instructed to ice and elevate. She will be given a referral to orthopedics. She is happy with the plan of care, all questions were answered, stable for discharge. Post splint, patient was neurovascular intact. Capillary refills less than 3 seconds. Patient is moving all fingers. Patient verbally understands the importance of following up outpatient. Stable for discharge. Discharge Plan Triage Chief Complaint: Upper Extremity Injury ED Midlevel Provider: Alfred Moya ED Provider: Lei Bender Dx/Rx/DC Orders Clinical Impression: Distal radial fracture Instructions: Distal Radius Fx Prescriptions: New hydrocodone-acetaminophen 5-325 mg tablet 1 tab PO Q6H PRN PRN (Reason: Pain) 3 Days Qty: 10 0RF ondansetron 4 mg tablet,disintegrating 4 mg PO Q6H PRN (Reason: nausea and vomiting) Qty: 20 0RF No Action buspirone 15 mg tablet 15 mg PO BID hydroxyzine HCl 25 mg tablet 25 mg PO TID PRN sertraline 100 mg tablet 100 mg PO DAILY famotidine [Pepcid] 20 mg tablet 20 mg PO BID promethazine 25 mg tablet 25 mg PO Q6H PRN (Reason: nausea) pantoprazole [Protonix] 40 mg tablet,delayed release (DR/EC) 40 mg PO DAILY metoclopramide HCl [Reglan] 5 mg tablet 5 mg PO Q6H PRN (Reason: nausea and vomiting) Primary Care Provider: Aliza Gregory NP Referrals: Femi Bolanos DO [Med Staff - Active Staff] - Aliza Gregory NP, [facility] [Primary Care Provider] - Activity Restrictions/Additional Instructions: You have a distal radial fracture to the right arm. You are in a sugar-tong fiberglass splint. You need to follow-up with orthopedics. Use the [place] to help you sleep. Use ibuprofen or Tylenol. You may elevate ice. Print Language: Serbian Disposition Disposition: Home, Self Care
[2024-08-07] MEDS: Ibuprofen 600 MG Tablet PO (16:07)
[2024-08-07 16:15] VITALS: BP 127/88; PULSE 74; RESP 16; TEMP 36.6; O2SAT 99
== END 2024-08-07 16:16 | disposition home or self-care (01) ==
PROVIDERS: Emergency Provider Emergency Medicine; PCP Nurse Practitioner Primary Care; Visit Provider Emergency Medicine
DX: S52.501A Unspecified fracture of the lower end of right radius, initial encounter for closed fracture (principal); V00.311A Fall from snowboard, initial encounter; Y93.23 Activity, snow (alpine) (downhill) skiing, snowboarding, sledding, tobogganing and snow tubing
CPT/HCPCS: 73110; 99283